=== PATIENT | female | born 1990 | race Caucasian/White ===

== ENCOUNTER 2017-06-09 13:45 | Inpatient (IN) | payer OTHER ==
[~2017-06-09] VITALS: Ht 154.9 cm; Wt 3.2 kg
[2017-06-10] MEDS ORDERED: PRENATAL TABLE1 EAC1 (20:31)
[2017-06-10] MEDS ORDERED: PRENATAL TABLE1 EAC1 PO (20:33)
== END 2017-06-13 11:17 | DRG 765 ==
LOC: OB/GYN 13:45 → LDR 06-10 19:26 → OB/GYN 06-11 05:11
PROVIDERS: Obstetrics & Gynecology
PROC: 4A1HXCZ Monitoring of Products of Conception, Cardiac Rate, External Approach (ICD-10-PCS; 2017-06-10)
PROC: 4A033R1 Measurement of Arterial Saturation, Peripheral, Percutaneous Approach (ICD-10-PCS; 2017-06-11)
PROC: 10D00Z1 Extraction of Products of Conception, Low, Open Approach (ICD-10-PCS; principal; 2017-06-11 03:00)
DX: O33.9 Maternal care for disproportion, unspecified (principal); O60.14X0 Preterm labor third trimester with preterm delivery third trimester, not applicable or unspecified; Z3A.36 36 weeks gestation of pregnancy; Z37.0 Single live birth; O42.013 Preterm premature rupture of membranes, onset of labor within 24 hours of rupture, third trimester; O99.820 Streptococcus B carrier state complicating pregnancy